=== PATIENT | female | born 1975 | race Caucasian/White ===

== ENCOUNTER 2025-02-24 09:49 | Outpatient (CLI) | payer OTHER, SELFPAY ==
[2025-02-24 10:08] LABS: Basophils Absolute Auto 0.06 K/mm3 (0.00-0.10); Basophils Percent Auto 0.8 % (0.0-1.0); Eosinophils Absolute Auto 0.13 K/mm3 (0.02-0.50); Eosinophils Percent Auto 1.7 % (1.0-6.0); Hemoglobin 14.9 g/dL (12.0-15.0); Immature Granulocyte Absolute 0.02 K/mm3 (0.00-0.00); Immature Granulocyte Percent A 0.3 % (0.0-0.0); Lymphocytes Absolute Auto 2.89 K/mm3 (1.10-4.50); Lymphocytes Percent Auto 37.8 % (18.0-42.0); Mean Corpuscular HGB Conc 33.1 g/dL (32-36); Mean Corpuscular Hemoglobin 31.5 pg (27.0-31.0); Mean Corpuscular Volume 95.1 fL (78.0-102.0); Mean Platelet Volume 9.8 fl (9.2-11.8); Monocytes Absolute Auto 0.76 K/mm3 (0.10-0.90); Monocytes Percent Auto 9.9 % (2.0-11.0); Neutrophils Absolute Auto 3.78 K/mm3 (1.70-7.20); Neutrophils Percent Auto 49.5 % (50.0-70.0); Platelet Count Result 333 K/mm3 (150-420); Red Blood Count 4.73 M/mm3 (4.20-5.40); Red Cell Distribution Width 13.1 % (11.6-14.4); White Blood Count 7.6 K/mm3 (4.8-10.8)
[2025-02-24 10:24] LABS: Iron 48 ug/dL (37-170)
[2025-02-24 10:34] LABS: Percent Iron Saturation 16 % (20-50)
[2025-02-24 10:56] LABS: Thyroid Stimulating Hormone 0.496 uIU/mL (0.465-4.680)
== END 2025-02-24 09:50 | disposition home or self-care (01) ==
LOC: CHSLAB 09:56
PROVIDERS: PCP Physician Assistant; Visit Provider Physician Assistant
DX: G62.9 Polyneuropathy, unspecified (principal); G25.81 Restless legs syndrome
CPT/HCPCS: 36415; 82607; 82728; 83540; 83550; 84443; 85025